=== PATIENT | male | born 1975 | race Caucasian/White ===

== ENCOUNTER 2019-11-05 08:02 | Emergency (ER) | payer SELFPAY ==
--- NOTE | 2019-11-05 08:28 | ER ---
Nurse's Notes [facility] Name: Jhoan Rebolledo Age: 44 yrs Sex: Male : 1975 Arrival Date: 11/05/2019 Time: 08:10 Bed 18 Private MD: Diagnosis: Otalgia, right ear;Parotitis Presentation: 11/04 08:14 Chief complaint: Patient states: R ear pain and swelling that began yesterday. ss Coronavirus screen: Client denies travel out of the [place] in the last 14 days. At this time, the client does not indicate any symptoms associated with coronavirus-19. Ebola Screen: Patient denies exposure to infectious person. Patient denies travel to an Ebola-affected area in the 21 days before illness onset. Initial Sepsis Screen: Does the patient meet any 2 criteria? No. Patient's initial sepsis screen is negative. Does the patient have a suspected source of infection? No. Patient's initial sepsis screen is negative. Risk Assessment: Do you want to hurt yourself or someone else? Patient reports no desire to harm self or others. Onset of symptoms was November 04, 2019. 08:14 Method Of Arrival: Ambulatory ss 08:14 Acuity: DANIEL 5 ss Historical: - Allergies: 08:16 No Known Allergies; ss - Home Meds: 08:16 None [Active]; ss - PMHx: 08:16 None; ss - PSHx: 08:16 None; ss - Immunization history:: Adult Immunizations up to date. - Social history:: Smoking status: Patient reports the use of cigarette tobacco products, smokes one-half pack cigarettes per day. - Family history:: not pertinent. - Hospitalizations: : No recent hospitalization is reported. Screenin:14 Abuse screen: Denies threats or abuse. Denies injuries from another. Nutritional ss screening: No deficits noted. Tuberculosis screening: Never had TB. Fall Risk None identified. Assessment: 08:14 General: Appears uncomfortable, Behavior is calm, cooperative. Pain: Complains of pain ss in right ear and right cheek Pain currently is 10 out of 10 on a pain scale. Quality of pain is described as aching, throbbing, Pain began yesterday Is continuous. Neuro: Level of Consciousness is awake, alert, obeys commands, Oriented to person, place, time, situation. Cardiovascular: Capillary refill < 3 seconds is brisk in bilateral fingers. Respiratory: Airway is patent Respiratory effort is even, unlabored, Respiratory pattern is regular, symmetrical. GI: Patient currently denies diarrhea, nausea, vomiting. : No signs and/or symptoms were reported regarding the genitourinary system. EENT: Nares are clear Oral mucosa is moist. Derm: redness noted to R ear. Musculoskeletal: Circulation, motion, and sensation intact. Range of motion: intact in all extremities, Swelling present in right ear. Vital Signs: 08:14 BP 128 / 93; Pulse 90; Resp 16; Temp 98.9(TE); Pulse Ox 99% on R/A; Weight 95.25 kg; ss Height 6 ft. 0 in. (182.88 cm); Pain 10/10; 08:14 Body Mass Index 28.48 (95.25 kg, 182.88 cm) ED Course: 08:10 Patient arrived in ED. mr 08:14 Patient has correct armband on for positive identification. Bed in low position. Call ss light in reach. 08:15 Triage completed. ss 08:16 Arm band placed on right wrist. ss 08:17 Usman De La O MD is Attending Physician. rn 09:03 Africa Chapin RN is Primary Nurse. ss 09:03 No provider procedures requiring assistance completed. Patient did not have IV access ss during this emergency room visit. Administered Medications: 08:37 Drug: Decadron 10 mg Route: IM; Site: left deltoid; ss 09:04 Follow up: Response: No adverse reaction ss 08:37 Drug: TORadol 30 mg Route: IM; Site: right deltoid; ss 09:05 Follow up: Response: No adverse reaction ss 08:37 Drug: [place] 10 mg-325 mg 1 tabs Route: PO; ss 09:05 Follow up: Response: No adverse reaction ss Outcome: 08:28 Discharge ordered by . rn 09:03 Discharged to home ambulatory. ss 09:03 Condition: good 09:03 Discharge instructions given to patient, Instructed on discharge instructions, follow up and referral plans. medication usage, Demonstrated understanding of instructions, follow-up care, medications, Prescriptions given X 3. 09:04 Patient left the ED. ss Signatures: Carmen Edge mr De La O, Usman, MD MD rn Smirch, Africa, RN RN ss
--- NOTE | 2019-11-05 08:28 | EDPHYS ---
Physician Documentation [facility] Name: Jhoan Rebolledo Age: 44 yrs Sex: Male : 1975 Arrival Date: 11/05/2019 Time: 08:10 Bed 18 Private MD: ED Physician Usman De La O HPI: 11/04 08:24 This 44 yrs old Male presents to ER via Ambulatory with complaints of Ear rn Pain, swelling. 08:24 The patient presents with pain, swelling. The complaints affect the right cheek and rn right ear. Onset: The symptoms/episode began/occurred 2 day(s) ago. Modifying factors: The symptoms are alleviated by nothing, the symptoms are aggravated by touching. Severity of symptoms: At their worst the symptoms were moderate in the emergency department the symptoms are unchanged. The patient has experienced similar episodes in the past. Reports hx of recurrent ear infections, + 2 days of right ear pain, and swelling around it, hurts to chew and touch area, no drainage, no fever, no trauma. . Historical: - Allergies: 08:16 No Known Allergies; ss - Home Meds: 08:16 None [Active]; ss - PMHx: 08:16 None; ss - PSHx: 08:16 None; ss - Immunization history:: Adult Immunizations up to date. - Social history:: Smoking status: Patient reports the use of cigarette tobacco products, smokes one-half pack cigarettes per day. - Family history:: not pertinent. - Hospitalizations: : No recent hospitalization is reported. ROS: 08:24 Constitutional: Negative for fever, chills, and weight loss, Eyes: Negative for injury, rn pain, redness, and discharge, ENT: + right ear pain and swelling Neck: Negative for injury, pain, and swelling, Cardiovascular: Negative for chest pain, palpitations, and edema, Respiratory: Negative for shortness of breath, cough, wheezing, and pleuritic chest pain. Exam: 08:24 Constitutional: This is a well developed, well nourished patient who is awake, alert, rn and in no acute distress. Head/Face: Normocephalic, atraumatic. Eyes: Pupils equal round and reactive to light, extra-ocular motions intact. Lids and lashes normal. Conjunctiva and sclera are non-icteric and not injected. Cornea within normal limits. Periorbital areas with no swelling, redness, or edema. ENT: Right TM normal appearing, + swelling right auditory canal without drainage, + tenderness with right ear manipulation. + mild swelling and tenderness posterior and anterior to right ear. No fluctuance or crepitus. Vital Signs: 08:14 BP 128 / 93; Pulse 90; Resp 16; Temp 98.9(TE); Pulse Ox 99% on R/A; Weight 95.25 kg; ss Height 6 ft. 0 in. (182.88 cm); Pain 10/10; 08:14 Body Mass Index 28.48 (95.25 kg, 182.88 cm) ss MDM: 08:17 Patient medically screened. rn 08:24 Differential diagnosis: otitis media, otitis externa, acute otalgia, parotitis. Data rn reviewed: vital signs, nurses notes, and as a result, I will discharge patient. Counseling: I had a detailed discussion with the patient and/or guardian regarding: the historical points, exam findings, and any diagnostic results supporting the discharge/admit diagnosis, the need for outpatient follow up, to return to the emergency department if symptoms worsen or persist or if there are any questions or concerns that arise at home. Special discussion: I discussed with the patient/guardian in detail that at this point there is no indication for admission to the hospital. It is understood, however, that if the symptoms persist or worsen the patient needs to return immediately for re-evaluation. ED course: Told to return if symptoms worsen on abx. . Administered Medications: 08:37 Drug: Decadron 10 mg Route: IM; Site: left deltoid; 09:04 Follow up: Response: No adverse reaction 08:37 Drug: TORadol 30 mg Route: IM; Site: right deltoid; ss 09:05 Follow up: Response: No adverse reaction 08:37 Drug: [place] 10 mg-325 mg 1 tabs Route: PO; ss 09:05 Follow up: Response: No adverse reaction ss Disposition: 11/05/19 08:28 Discharged to Home. Impression: Otalgia, right ear, Parotitis. - Condition is Stable. - Discharge Instructions: Otitis Externa, Parotitis. - Prescriptions for Augmentin 875- 125 mg Oral Tablet - take 1 tablet by ORAL route every 12 hours for 10 days; 20 tablet. Ultram 50 mg Oral Tablet - take 1 tablet by ORAL route every 6 hours As needed; 15 tablet. Ciprodex 0.3- 0.1 % Otic Drops, Suspension - instill 4 drop by OTIC route every 12 hours for 7 days , for ears ONLY; 1 Container. - Medication Reconciliation Form, Thank You Letter, Antibiotic Education, Prescription Opioid Use form. - Follow up: Private Physician; When: As needed; Reason: Recheck today's complaints, Re-evaluation by your physician. - Problem is new. - Symptoms have improved. Signatures: Usman De La O MD MD rn Africa Chapin RN RN ss Corrections: (The following items were deleted from the chart) 09:04 08:28 11/05/2019 08:28 Discharged to Home. Impression: Otalgia, right ear; Parotitis. ss Condition is Stable. Forms are Medication Reconciliation Form, Thank You Letter, Antibiotic Education, Prescription Opioid Use. Follow up: Private Physician; When: As needed; Reason: Recheck today's complaints, Re-evaluation by your physician. Problem is new. Symptoms have improved. rn
[2019-11-05] MEDS ORDERED: dexAMETHasone 10 MG/ML VIAL ONE (08:42)
[2019-11-05] MEDS ORDERED: HYDROCODONE/APAP 10/325 TAB ONE (08:42)
[2019-11-05] MEDS ORDERED: KETOROLAC 30 MG/ML INJ ONE (08:42)
[2019-11-05 09:42] VITALS: BP 128/93; TEMP 98.9; O2SAT 99
== END 2019-11-05 09:04 | disposition home or self-care (01) ==
LOC: ER 08:02
DX: K11.20 Sialoadenitis, unspecified (principal); F17.210 Nicotine dependence, cigarettes, uncomplicated
CPT/HCPCS: 96372; 99283; J1100